=== PATIENT | female | born 1960 | race Caucasian/White ===

== ENCOUNTER 2021-09-10 15:31 | Inpatient (IN) | payer OTHER ==
[~2021-09-10] VITALS: Ht 167.6 cm; Wt 70.8 kg
--- NOTE | 2021-09-10 15:31 | NUR ---
PT BIBA AND PLACED IN BED 11.
[2021-09-10 15:35] VITALS: BP 90/60
[2021-09-10] MEDS ORDERED: NACL 0.9% 1,000 ML IV ONE ×2 (15:45→19:05)
[2021-09-10] MEDS ORDERED: BISA5TAB79 PO (16:05)
[2021-09-10] MEDS ORDERED: MULT-1328 PO (16:05)
[2021-09-10] MEDS ORDERED: GABA400C PO (16:05)
[2021-09-10] MEDS ORDERED: PRO5 PO (16:05)
[2021-09-10] MEDS ORDERED: PANT40EC PO (16:05)
[2021-09-10] MEDS ORDERED: POTA10TA PO (16:05)
[2021-09-10] MEDS ORDERED: LACT1CAP92 PO (16:05)
[2021-09-10] MEDS ORDERED: CHOL100030 PO (16:05)
[2021-09-10] MEDS ORDERED: FERR325E14 PO (16:05)
[2021-09-10] MEDS ORDERED: MIRABULK PO (16:05)
[2021-09-10] MEDS ORDERED: TOPI50TA PO (16:05)
[2021-09-10] MEDS ORDERED: LEVO0.124 PO (16:05)
[2021-09-10] MEDS ORDERED: ONDA-188 PO (16:05)
[2021-09-10] MEDS ORDERED: MIRT-91 PO (16:05)
[2021-09-10] MEDS ORDERED: HYDR-5191 PO (16:05)
[2021-09-10] MEDS ORDERED: cefTRIAXone 1,000 MG VIAL ONE (16:20)
[2021-09-10 16:44] LABS: HEMATOCRIT 38.9 % (36-48); HEMOGLOBIN 11.7 g/dL (12.0-16.0); MEAN CORPUSCULAR HEMOGLOBIN 32 pg (27-31); MEAN CORPUSCULAR HGB CONC 30 g/dL (33-37); MEAN CORPUSCULAR VOLUME 106.1 fL (80-94); PLATELET COUNT (AUTO) 303 K/uL (140-450); RED BLOOD CELL COUNT(AUTO) 3.67 MIL/uL (4.20-5.40); RED CELL DISTRIBUTION WIDTH 26.2 % (11.6-13.7)
[2021-09-10 16:47] LABS: WHITE BLOOD COUNT (AUTO) 44.5 K/uL (4.8-10.8)
[2021-09-10 17:05] LABS: ALBUMIN 1.9 g/dL (3.4-5.0); ANION GAP 22.1 (8-16); ASPARTATE AMINOTRANSFERASE 248 U/L (15-37); CARBON DIOXIDE 11.2 mmol/L (21-32); CHLORIDE 120 mmol/L (98-107); CREATININE 0.9 mg/dL (0.6-1.3); GFR ARICAN-AMERICAN 82 mL/min (>90); GLUCOSE 101 mg/dL (74-106); POTASSIUM 4.3 mmol/L (3.5-5.1); SODIUM SERUM 149 mmol/L (136-145); TOTAL BILIRUBIN 1.1 mg/dL (0.0-1.0); UREA NITROGEN, BLOOD 2 mg/dL (7-18)
[2021-09-10 17:10] LABS: LYMPHOCYTES % (MANUAL) 2 % (20-46); PROMYELOCYTES % 1 % (0-0)
[2021-09-10] MEDS ORDERED: PIPERACILLIN/TAZOBACTAM 3.375 GM in DEXTROSE 5% 50 ML IV ONE (19:00)
[2021-09-10] MEDS ORDERED: LACTATED RINGERS 1,000 ML IV ONE (19:05)
[2021-09-10] MEDS ORDERED: PIPERACILLIN/TAZOBACTAM 3.375 GM VIAL IV ONE (19:07)
--- NOTE | 2021-09-10 20:43 | NUR ---
Patient will be admitted to care of XOCHITL LEDEZMA. Admited to ICU. Will go to room 2. Belongings list completed. Report to TONI KIMBLE.
--- NOTE | 2021-09-10 20:48 | NUR ---
PT TAKEN TO CT
[2021-09-10] MEDS ORDERED: DOCUSATE SODIUM 100 MG GELCAP PO PRN (20:50)
[2021-09-10] MEDS ORDERED: HYDROcodone/APAP 7.5/325 MG 1 TAB PO PRN (20:50)
[2021-09-10] MEDS ORDERED: POTASSIUM CHLORIDE 10 MEQ TABER PO PRN (20:50)
[2021-09-10] MEDS ORDERED: guaiFENesin DM 200/20 MG-10 ML 10 ML UDC PO PRN (20:50)
[2021-09-10] MEDS ORDERED: ACETAMINOPHEN 325 MG TAB PO PRN (20:50)
[2021-09-10] MEDS ORDERED: ONDANSETRON 4 MG/2 ML VIAL IM/IVP PRN (20:50)
[2021-09-10] MEDS ORDERED: NACL 0.9% 1,000 ML IV SCH (20:50)
[2021-09-10] MEDS ORDERED: ZOLPIDEM 5 MG TAB PO PRN (20:50)
[2021-09-10 21:30] VITALS: BP 121/60
--- NOTE | 2021-09-10 21:30 | NUR ---
RECEIVED PT. FROM ER NOC SHIFT RN VIA HERIBERTO. PT. AWAKE AND CONFUSE, ONLY ALERT TO PERSON. CHECKED INITIAL ASSESSMENT. PT. ON ROOM AIR WITH O2 SAT 94%. PLACED ON NASAL CANULA 2L. IV SITE TO RIGHT ARM PICC LINE, DRESSING CHANGED. PT. SKIN HAS MULTIPLE WOUNDS, PLEASE SEE WOUND ASSESSMENT. WOUND DRESSING CHANGED. LEFT ARM OOZING WITH FLUID FROM THE SKIN. NPO PER MD ORDERED. CHECKED TEMPERATURE HYPOTHERMIC (PLEASE SEE V/S). PROVIDED A BEAR HUGGER BLANKET. REPOSITIONED PT.BED PLACED IN LOWEST HEIGHT FOR SAFETY. WILL CONT. TO CLOSELY MONITOR.
[2021-09-10 22:00] VITALS: BP 100/49
--- NOTE | 2021-09-10 22:00 | NUR ---
PT. HINDS CATHETER CHANGED TO 16F DURING THE TIME OF ICU ADMISSION. PT. OBSERVED TO BE ANURIC, FLUSHED 40ML NS AND STILL NO OUTPUT. CHANGED HINDS CATHETER AT THIS TIME TO 20F, 3 WAY CATHETER. WILL CONT. TO MONITOR.
[2021-09-10 22:26] LABS: CHOL/HDL RATIO 7.8 (1-4.5); FREE T4 (FREE THYROXINE) 0.71 ng/dL (0.76-1.46); MAGNESIUM 1.6 mg/dL (1.8-2.4); PHOSPHORUS 1.7 mg/dL (2.5-4.9); THYROID STIMULATING HORMONE 0.15 uIU/mL (0.34-3.74)
--- NOTE | 2021-09-10 22:30 | NUR ---
[facility] CALL [facility], NO ANSWER, NO VOICEMAIL,PHONE JUST KEPT ON RINGING.WILL TRY AGAIN LATER
[2021-09-10] MEDS ORDERED: VANCOMYCIN PER PHARMACY MC PRN (22:35)
--- NOTE | 2021-09-10 22:37 | NUR ---
RT GUERLINE CALLED DR LOPEZ REGARDING ABG RESULT, RARE/ENDANGERED SPECIES SPECIALIST ALSO SPOKE W/ PHYSICIAN, UPDATED ON PTS PRESENT CONDITION.MADE AWARE OF PTS PT/PTT AND INR RESULTS.QUESTIONS ANSWERED.DR LOPEZ IS AWARE PT HAS AN EXISTING PICC/MIDLINE? TO VANESSA; HE SAID OK TO USE IF PT WILL NEED VASOPRESSOR, ALSO NOTIFIED THAT RARE/ENDANGERED SPECIES SPECIALIST HAS BEEN CALLING [facility], NO ANSWER.
[2021-09-10] MEDS ORDERED: VANCOMYCIN 1GM/DEXT 5% PREMIX 200 ML IV SCH (22:45)
[2021-09-10] MEDS: DEXT 5% / NACL 0.45% 1,000 ML IV SCH (22:50)
[2021-09-10] MEDS ORDERED: VANCOMYCIN 1,000 MG VIAL ONE (22:53)
--- NOTE | 2021-09-10 23:25 | NUR ---
PHONE CALL AGAIN TO [facility], PAINTER AIRCRAFT WANTS TO FIND OUT WHEN THE PICC LINE WAS INSERTED, STILL NO ANSWER.
[2021-09-11] VITALS (28 sets, daily range): BP systolic 64–137; BP diastolic 42–86
[2021-09-11] MEDS ORDERED: PIPERACILLIN/TAZOBACTAM 3.375 GM VIAL IV ONE ×2 (01:25→04:35)
[2021-09-11] MEDS: PIPERACILLIN/TAZOBACTAM 3.375 GM in DEXTROSE 5% 50 ML IV SCH ×2 (01:29→06:32)
[2021-09-11 04:51] LABS: APPEARANCE,URINE CLOUDY (CLEAR); BILIRUBIN,URINE 1+ (NEGATIVE); BLOOD, URINE 3+ (NEGATIVE); COLOR,URINE YELLOW (YELLOW); LEUKOCYTE ESTERASE ,URINE 2+ (NEGATIVE); NITRITE, URINE NEGATIVE (NEGATIVE); UGLUCOSE NEGATIVE (NEGATIVE)
[2021-09-11 05:15] LABS: BASOPHILS # (AUTO) 0.2 K/uL (0.00-0.22); BASOPHILS % (AUTO) 0.4 % (0.0-2.0); HEMATOCRIT 30.6 % (36-48); HEMOGLOBIN 9.2 g/dL (12.0-16.0); LYMPHOCYTES # (AUTO) 2.6 K/uL (2.5-16.5); LYMPHOCYTES % (AUTO) 4.7 % (20.5-51.1); MEAN CORPUSCULAR HEMOGLOBIN 32 pg (27-31); MEAN CORPUSCULAR HGB CONC 30 g/dL (33-37); MEAN CORPUSCULAR VOLUME 107.1 fL (80-94); MONOCYTES # (AUTO) 1.2 K/uL (0.8-1.0); MONOCYTES % (AUTO) 2.1 % (1.7-9.3); NEUTROPHILS # (AUTO) 51.1 K/uL (1.8-7.7); NEUTROPHILS % (AUTO) 92.8 % (42.2-75.2); PLATELET COUNT (AUTO) 286 K/uL (140-450); RED BLOOD CELL COUNT(AUTO) 2.86 MIL/uL (4.20-5.40); RED CELL DISTRIBUTION WIDTH 26.4 % (11.6-13.7)
[2021-09-11 05:27] LABS: WHITE BLOOD COUNT (AUTO) 55.1 K/uL (4.8-10.8)
[2021-09-11 05:31] LABS: ANION GAP 18.2 (8-16); CARBON DIOXIDE 10.1 mmol/L (21-32); CREATININE 0.7 mg/dL (0.6-1.3); POTASSIUM 3.3 mmol/L (3.5-5.1)
[2021-09-11 05:32] LABS: RBC,URINE TOO NUMEROUS TO COUN /HPF (0-5)
--- NOTE | 2021-09-11 06:35 | NUR ---
PHONE CALL TO DR ANDERSON, LEFT MESSAGE TO EXCHANGE REGARDING NEW CONSULT AND THAT WBC 55.1; EXCHANGE SAID SHE WILL FORWARD THE MESSAGE TO PHYSICIAN.AWAITING REPLY
--- NOTE | 2021-09-11 07:15 | NUR ---
RECEIVED BEDSIDE REPORT FROM CANDELARIO AGUSTIN RN FOR CONTINUITY OF CARE. PT IN THE BED, AAOX0. EYES OPEN, PERRLA, CAN TRACK, BUT DOES NOT FOLLOW COMMANDS. UNABLE TO OBTAIN NEURO BASELINE. ON 2L NC. SR ON BEDSIDE MONITOR. BP 89/59. BOWEL SOUNDS ACTIVE. F/C TO GRAVITY DRAINING DARK VIC URINE. VANESSA SINGLE LUMEN PICC IN PLACE INFUSING D5 1/2NS AT 100 ML/HR. SKIN NOT INTACT, SEE WOUND ASSESSMENT. BUE +4 PITTING EDEMA, BRUISING, PETECHIAE. GENERALIZED WEAKNESS. STANDARD PRECAUTIONS IN PLACE. SAFETY PRECAUTIONS MET. INITIAL ASSESSMENT COMPLETE, WILL CONTINUE TO CLOSELY MONITOR.
--- NOTE | 2021-09-11 07:45 | NUR ---
RECEIVED ON HUMIDIFIED SUPPLEMENTAL OXYGEN AT 4 LPM VIA NC SATURATION 95%
[2021-09-11 08:17] LABS: MAGNESIUM 1.3 mg/dL (1.8-2.4); PHOSPHORUS 1.7 mg/dL (2.5-4.9)
[2021-09-11] MEDS: PANTOPRAZOLE 40 MG INJ VIAL IVP SCH (08:30)
[2021-09-11] MEDS: DEXT 5% / NACL 0.45% 1,000 ML IV SCH ×2 (08:40→19:05)
--- NOTE | 2021-09-11 08:50 | NUR ---
PHONE CALL FROM DR ANDERSON, RETURNING DEPARTMENT SECRETARY RN PAGE. INFORMED DR OF PT STATUS. ORDERED US ABD AND TO REMOVE PICC, CULTURE THE TIP, AND FIND IV ACCESS ELSEWHERE. OTHER MED ORDERS INPUT BY DR. ANDERSON.
[2021-09-11] MEDS ORDERED: MAG SULF 2000 MG/WATER PREMIX 50 ML IV SCH ×2 (09:30→15:00)
[2021-09-11] MEDS ORDERED: POTASSIUM CHLORIDE 40 MEQ, LIDOCAINE MPF 1% 25 MG in NACL 0.9% 250 ML IV PRN (09:30)
--- NOTE | 2021-09-11 09:30 | NUR ---
SEEN AND EXAMINED BY DR LEDEZMA.
[2021-09-11] MEDS: MICAFUNGIN SODIUM 100 MG in NACL 0.9% 100 ML IV SCH (09:46)
--- NOTE | 2021-09-11 09:55 | NUR ---
PHONE CALL TO PICC SERVICE. WAITING FOR CALL BACK FROM [facility] PICC NURSE FOR ETA.
--- NOTE | 2021-09-11 10:15 | NUR ---
DR CALLES ROUNDHANS AT THE BEDSIDE.
--- NOTE | 2021-09-11 10:20 | NUR ---
HIGHWAY ADMINISTRATIVE ENGINEER CALLED TO BEDSIDE DR. BRETT CALLES ROUNDHANS IN ICU; TO PERFORM INTUBATION AND BRONCHOSCOPY FOLLOWED BY RIGHT JUGULAR CATHETER
[2021-09-11] MEDS ORDERED: SODIUM BICARBONATE 8.4% PFS 50 MEQ/50 ML SYR IVP ONE ×4 (10:27→10:44)
[2021-09-11] MEDS ORDERED: POTASSIUM PHOSPHATE 15 MM in NACL 0.9% 250 ML IV SCH ×2 (10:30→10:34)
[2021-09-11] MEDS ORDERED: PROPOFOL 1000 MG/100 ML PREMIX 100 ML IV PRN (10:33)
--- NOTE | 2021-09-11 10:33 | NUR ---
PATIENT HAS BEEN SCREENED AND CATEGORIZED HIGH NUTRITION RISK. PATIENT WILL BE SEEN WITHIN 1-2 DAYS OF ADMISSION. 09/11/21-09/12/[address] FNS CONSULT RECEIVED FOR WOUNDS/PRESSURE INJURY AND RENAL DIET EDUCATION.
--- NOTE | 2021-09-11 10:33 | NUR ---
ELLEN SOTO AND WILLIAM AT BEDSIDE. DR CALLES AT BEDSIDE GIVING ORDERS AND PERFORMING INTUBATION, BRONCHOSCOPY, AND CENTRAL LINE INSERTION. 1028 1 AMP SODIUM BICARBONATE GIVEN. 1033 20 MG ETOMIDATE GIVEN. 1034 ROCURONIUM GIVEN. 1034 LEVOPHED TITRATED UP TO 30 MCG/MIN. (GOAL PER DR LEDEZMA MAP >75) BP 64/42 MAP 51 1035 ETT PLACED 7.5 @ 24CM @ LIP. 1038 BEDSIDE BRONCHOSCOPY. 1044 1 AMP SODIUM BICARBONATE GIVEN. [address] PER [address] CALLES ORDER, AT 0.4 UNITS/MIN. BP 88/58 MAP 67. ADJUSTED TO 0.04 UNITS/MIN. 1110 CENTRAL LINE INSERTED BY DR CALLES.
--- NOTE | 2021-09-11 10:35 | NUR ---
USING A GLIDESCOPE PATIENT SUCCESSFULLY INTUBATED BY DR. BRETT CALLES WITH AN ENDOTRACHEAL TUBE (ETT) #7.5 SECURED AT 18cm TEETH/GUM LINE SECURED WITH AN ANCHOR FAST CUFF INJECTED WITH 8ml AIR VIA 10ml SYRINGE ETT CONFIRMATION CO2 DETECTOR YELLOW; AUSCULTATION TO BILATERAL LUNG DAVEY; EQUAL CHEST RISE CHEST XRAY TO FOLLOW
--- NOTE | 2021-09-11 10:38 | NUR ---
BRONCHOSCOPY PERFORMED BY DR. LITZY CALLES FOR THERAPEUTIC AND DIAGNOSTIC; OBTAINED SAMPLE FOR CULTURE AND SENSITIVITY Addendum: 09/11/21 at 1431 by Cornell Cunningham RT LITZY = BRETT
[2021-09-11] MEDS: VASOPRESSIN 20 UNITS in NACL 0.9% 250 ML IV SCH ×2 (10:56→12:00)
[2021-09-11] MEDS ORDERED: SODIUM BICARBONATE 8.4% 150 MEQ in DEXTROSE 5% 1,000 ML IV SCH (11:10)
[2021-09-11] MEDS ORDERED: ALBUTEROL SULFATE/IPRATROPIU 3 ML SOL IH PRN (11:15)
[2021-09-11] MEDS: NOREPINEPHRINE 4 MG in DEXTROSE 5% 250 ML IV PRN ×3 (12:15→23:42)
--- NOTE | 2021-09-11 12:39 | NUR ---
09/11/2021 RD INITIAL ASSESSMENT COMPLETED. PLEASE REFER TO NUTRITION ASSESSMENT UNDER CARE ACTIVITY FOR ESTIMATED NUTRITIONAL NEEDS. 1.WHEN/IF MEDICALLY APPROPRIATE, RECOMMEND JEVITY 1.2 WITH A GOAL RATE OF 65ML/HR. -START AT 10 ML/HR AND INCREASE BY 10 ML EVERY 4 HOURS TOLERATED BY PT UNTIL GOAL RATE OF 65ML/HR REACHED. -FWF 200ML Q8H. THIS WILL PROVIDE 1878 KCAL AND 87 GRAMS OF PROTEIN. WITH CRISPIN, THIS MEETS 100% OF CALORIE AND 97% OF PROTEIN NEEDS. 2.WHEN/IF MEDICALLY APPROPRIATE, RECOMMEND CRISPIN BID FOR WOUND HEALING. 3.MONITOR FOR WOUND HEALING. 4.PROVIDED HANDOUT FOR PT ON UTI AND LEFT HANDOUT WITH RN TO GIVE TO PT. 5.RD TO FOLLOW-UP IN 2-3 DAYS PATIENT IS HIGH RISK. KELLI HEATH RD
--- NOTE | 2021-09-11 13:05 | NUR ---
PT DAUGHTER, BETTY AT BEDSIDE.
[2021-09-11] MEDS: LEVOFLOXACIN 750 MG/D5W PREMIX 150 ML IV SCH (13:10)
[2021-09-11] MEDS ORDERED: PROPOFOL 1000 MG/100 ML PREMIX 100 ML IV ONE (13:42)
--- NOTE | 2021-09-11 13:57 | NUR ---
SEDATED NO DISTRESS NOTED GOOD CHEST RISE AIRWAY PATENT
--- NOTE | 2021-09-11 13:58 | NUR ---
PT MOTHER AT BEDSIDE.
--- NOTE | 2021-09-11 14:12 | NUR ---
ABG PROCEDURE COMPLETED NO ADVERSE REACTIONS NOTED
--- NOTE | 2021-09-11 14:23 | NUR ---
CALLED DR. BRETT CALLES AT [facility] [phone] TO REVIEW ABG SAMPLE REPORT LUISITO/EXCHANGE TO PAGE FORMENTIONED MD PATIENT REQUIRED INFORMATION AND CALL BACK NUMBER GIVEN
--- NOTE | 2021-09-11 14:32 | NUR ---
DC PLANNING: THE PATIENT WAS BIBA FROM [facility] WITH C/O ALOC, HYPOTENSION AND TACHYCARDIA. H/O MS, WBC'S 44.5 WITH BANDS OF 14. ALK PHOS 1052, LACTIC ACID 10.2. CXR SHOWS RIGHT LUNG CONSOLIDATIONS AND BILATERAL PLEURAL EFFUSIONS, CT ABD/PELVIS SHOWS RIGHT STAGHORN CALCULUS, RIGHT RENAL ARTERY ANEURYSM, HEPATOMEGALY. UA POSITIVE FOR UTI, ADMITTED TO ICU. PANCULTURES ORDERED, PATIENT NOTED TO HAVE MULTIPLE WOUNDS ON BODY. WBC'S TODAY 55.1, ABG'S WITH PH OF 7.116. CONSULTS WITH NEPHRO , UROLOGY, PULMONOLOGY AND ID ORDERED, PATIENT HAD BRONCHOSCOPY DONE TODAY AND WAS INTUBATED, PLACED ON VENT AT 100% FIO2. ON MEREM, BICARB, VANCO, PITRESSIN, POTASSIUM, LEVAQUIN, MICAFUNGIN AND LEVOPHED. BERNABE SPOKE WITH THE PATIENTS BALJIT BY PHONE. THE PATIENT WAS DIAGNOSED WITH MS 17 YEARS AGO AND WENT TO [facility] AFTER BECOMING SEPTIC BECAUSE OF MULTIPLE PRESSURE WOUNDS. AT THAT TIME THE PATIENT LIVED AT HOME AND SCOOTED HERSELF AROUND IN HER WC. SHE HAS BEEN TOTAL CARE AT [facility] AND WAS ABLE TO VERBALIZE APPROPRIATELY UNTIL VERY RECENTLY. HER IS AWARE OF HER MULTIPLE WOUNDS AND STATES HE HAS NOT BEEN HAPPY WITH THE CARE AT [facility] AND DID MAKE A COMPLAINT TO THE BUDSMAN. HE STATES THAT THE PATIENT CHOSE THE FACILITY AND WAS NOT AWARE THAT HE MIGHT HAVE OTHER OPTIONS FOR HIS 'S CARE. HE HAS 2 CHILDREN, AN ADULT STEPDAUGHTER AND A SON WHO IS SPECIAL NEEDS. BERNABE THEN ATTEMPTED TO SPEAK WITH NURSING AT [facility] TWICE, EACH TIME THE CALL WAS NOT PICKED UP AND WENT TO VOICE MAIL. BERNABE WILL TRY AGAIN IN AM TO SPEAK WITH SOMEONE REGARDING THE PATIENTS CURRENT STATUS AND CARE AT [facility]. BERNABE WILL FOLLOW.
--- NOTE | 2021-09-11 14:35 | NUR ---
OSVALDO/BLISS PRESS OPERATOR NOTIFIED OF ABG RESULT HcO3 11.8
--- NOTE | 2021-09-11 14:38 | NUR ---
CALL BACK FROM DR. BRETT CALLES REVIEWED ABG SAMPLE REPORT TORBO: INCREASE MECHANICAL RATE TO 30 BPM; NOTIFIED OSVALDO/MACHINE PULLER VIA MACHINE PULLER Addendum: 09/11/21 at 1458 by Cornell Cunningham RT ABG ON 09/12/2021 AT 8 AM
[2021-09-11] MEDS: VANCOMYCIN HCL 1.25 GM in DEXTROSE 5% 250 ML IV SCH ×2 (15:04→22:49)
[2021-09-11] MEDS: MEROPENEM 1,000 MG in NACL 0.9% 50 ML IV SCH ×2 (15:04→20:26)
[2021-09-11] MEDS: ALBUTEROL SULFATE/IPRATROPIU 3 ML SOL IH SCH ×3 (15:19→23:06)
--- NOTE | 2021-09-11 15:20 | NUR ---
SEDATED RESTING COMFORTABLY GOOD CHEST RISE WITH GOOD AERATION THROUGHOUT BILATERAL LUNG DAVEY AIRWAY PATENT
--- NOTE | 2021-09-11 17:04 | NUR ---
PT DAUGHTER BETTY AT BEDSIDE
--- NOTE | 2021-09-11 17:20 | NUR ---
PT , BALJIT, AT BEDSIDE. UPDATED REGARDING PT CONDITION. ALL QUESTIONS ANSWERED AT THIS TIME.
--- NOTE | 2021-09-11 17:52 | NUR ---
SEDATED STABLE EQUAL CHEST RISE WOTH GOOD AERATION THROUGHOUT BILATERAL LING DAVEY AIRWAY PATENT
--- NOTE | 2021-09-11 19:28 | NUR ---
ENDORSED BEDSIDE REPORT TO CANDELARIO AGUSTIN RN FOR CONTINUITY OF CARE. ALL QUESTIONS ANSWERED. VS STABLE, BP 102/75, O2SAT 90.
--- NOTE | 2021-09-11 19:30 | NUR ---
RECEIVED PT. FROM DAY SHIFT RN INTUBATED, ETT VENT SETTING AC 30, TV 400, FIO2 80% AND PEEP 5. PT. WITH RIGHT JUGULAR CVP TRIPLE LUMEN RUNNING IV FLUIDS OF D5 1/2 NS 100 ML/HR, D5 SODIUM BICARB AT 100 ML/HR., PROPOFOL DRIP 15 MCH/KG/MIN, LEVOPHED DRIP 16 MCG/MIN. STARTED VASOPRESSIN DRIP 0.01 UNITS/MIN AT 1900 DUE TO SBP IN THE 60'S AND AT 1915 DECREASED PROPOFOL DRIP FROM 15 MCG/KG/MIN TO 10 MCG/KG/MIN. PT. WEB SERVICES DEVELOPER ON SINUS TACHYCARDIA. PT. OPEN HER EYES WHEN YOU CALL HER NAME. ALL EXTREMITIES WEAK. WITH LEFT NGT RUNNING JEVITY 10 ML/HR WITH MINIMAL RESIDUAL. HINDS CATHETER [address]. REPOSITIONED AND PROVIDED SAFE AND QUIET ENVIRONMENT. WILL CONT. TO MONITOR.
--- NOTE | 2021-09-11 19:53 | NUR ---
MESSAGE TO DR CALLES,PULMO MOTOR AND CHASSIS INSPECTOR REGARDING IVF;NEW ORDER RECEIVED, TO CHANGE IVF TO D5 WITH 2 AMPS SODIUM BICARB AT 100ML/HR AND DC ALL OTHER IVF DRIPS.CARRIED OUT
--- NOTE | 2021-09-11 19:54 | NUR ---
PT. TOLERATING PROPOFOL DRIP OF 10 MG/KG/MIN. WITH WEIGHT 136 LBS BEDSCALE.. PT. COMFORTABLE AT THIS TIME.
[2021-09-11] MEDS ORDERED: NOREPINEPHRINE 4 MG/4 ML VIAL IV ONE (23:32)
[2021-09-12] VITALS (24 sets, daily range): BP systolic 48–125; BP diastolic 16–91
--- NOTE | 2021-09-12 03:00 | NUR ---
PT. GASTRIC RESIDUAL IS 120 ML VIA NGT. HOLD GASTRIC FEEDING OF JEVITY 10 ML/HR. WILL CONT. TO MONITOR.
[2021-09-12] MEDS ORDERED: NOREPINEPHRINE 4 MG/4 ML VIAL IV ONE ×2 (03:45→06:34)
--- NOTE | 2021-09-12 03:55 | NUR ---
PROVIDED PT. PERSONAL CARE, ORAL CARE, CALOS CARE AND CLEANSED AND CHANGED ALL WOUNDS DRESSING.
--- NOTE | 2021-09-12 03:56 | NUR ---
PT. RIGHT JUGULAR CATHETER TRIPLE LUMEN DRESSING CHANGED. SITE PATENT AND INTACT. LEFT SIDE OF THE NECK NOTED SKIN TEAR, PICTURE TAKEN, PLEASE SEE WOUND ASSESSMENT. WILL ENDORSE TO THE NEXT SHIFT.
[2021-09-12] MEDS: NOREPINEPHRINE 4 MG in DEXTROSE 5% 250 ML IV PRN ×2 (04:00→06:38)
--- NOTE | 2021-09-12 04:00 | NUR ---
PT. NOTED TO BE UNRESPONSIVE, HR IN 150S AND LOW BP, PLEASE SEE V/S FLOWSHEET. TURNED OF LPROPOFOL DRIP. INCREASED LEVOPHED DRIP FROM 16 MCG/MIN TO 25MCG/MIN. VASOPRESSIN TITRATED FROM 0.02 UNIT PER MIN TO 0.04 UNIT PER MINUTE. PAGED TO REPORT.
--- NOTE | 2021-09-12 04:07 | NUR ---
PAGED DR. CALLES TO REPORT PT. HR 150'S. PT. UNRESPONSIVE AND PUPILS SIZE 4 SLUGGISH. BP 101/53. PER CONGRESSIONAL DISTRICT AIDE DR. CONTRERAS CORPORATE SECURITIES RESEARCH ANALYST. WILL WAIT FOR HIS CALL.
[2021-09-12] MEDS: ALBUTEROL SULFATE/IPRATROPIU 3 ML SOL IH SCH ×2 (04:09→07:00)
--- NOTE | 2021-09-12 04:15 | NUR ---
PHONE CALL TO DR CARPENTER, INFORMED DR CARPENTER THAT WE ALREADY PAGED DR CASTILLO BUT STILL AWAITING REPLY, PTS HR 159 AT THIS TIME.BP ALSO LOW, PT ALREADY ON LEVOPHED AND VASOPRESSIN TITRATED PER PROTOCOL; DR CARPENTER ORDERED 2 LITERS NS BOLUS.CARRIED OUT.SHYANNE PEÑA
[2021-09-12] MEDS ORDERED: NACL 0.9% 1,000 ML IV SCH ×2 (04:20)
--- NOTE | 2021-09-12 04:20 | NUR ---
PHONE CALL FROM DR CONTRERAS, UPDATED ON PTS PRESENT CONDITION,MADE AWARE OF PTS HR 159, LOW BP, PT ON C=VASOPRESSORS,[place] SYNEPHRINE ORDERED. ALSO NOTIFIED DR CARPENTER ORDER OF NS 2 L BOLUS, DR CONTRERAS AGREED.
[2021-09-12] MEDS ORDERED: PHENYLEPHRINE 40 MG in NACL 0.9% 250 ML IV PRN (04:25)
[2021-09-12] MEDS: MEROPENEM 1,000 MG in NACL 0.9% 50 ML IV SCH ×2 (04:45→15:17)
[2021-09-12 06:29] LABS: ANION GAP 18.9 (8-16); CARBON DIOXIDE 15.1 mmol/L (21-32); CREATININE 0.8 mg/dL (0.6-1.3)
[2021-09-12 06:30] LABS: MAGNESIUM 1.5 mg/dL (1.8-2.4); PHOSPHORUS 1.7 mg/dL (2.5-4.9)
--- NOTE | 2021-09-12 07:10 | NUR ---
RECEIVED ON A MayomiAPE R860 VENTILATOR PLUGGED INTO RED OUTLET TOLERATING WELL WITHOUT ADVERSE REACTIONS NOTED TO AN ENDOTRACHEAL TUBE #7.5 AT 18cm TEETH/GUM LINE SECURED WITH AN ANCHOR FAST CUFF PRESSURE CHECKED NOTED AMBU BAG AT BEDSIDE SINUS TACHYCARDIA +140 BPM HHN WITH DUONEB NOT GIVEN AT THIS TIME WAREHOUSE ADMINISTRATIVE ASSISTANT TO REFER TO BIOTECH PRODUCTION SPECIALIST FOR ALTERNATIVE HHN MEDICATION
--- NOTE | 2021-09-12 07:19 | NUR ---
ENDORSED ALL CARE TO DAY SHIFT RN. ALL QUESTIONS WERE ANSWERED.
--- NOTE | 2021-09-12 07:25 | NUR ---
RECEIVED PT NONVERBAL, ABLE TO OPEN EYES TO VOICE. ET TUBE TO VENT SETTINGS AC PRVC TV 400 RATE 30 PEEP 5 FIO2@100%. SINUS TACHYCARDIA ON MONITOR. NG-TUBE INTACT ON LEFT NARE. HINDS CATHETER INTACT AND DRAINING TO BSD. CENTRAL LINE ON RIGHT IJ INTACT AND PATENT INFUSING D5 WITH 2 AMP OF BICARB @100ML/HR, VASOPRESSIN @0.04 UNITS/MIN, AND LEVOPHED @27MCG/MIN. VITAL SIGNS UNSTABLE. WILL REPORT TO .
--- NOTE | 2021-09-12 07:52 | NUR ---
PAGED DR. CONTRERSA AND LEFT MESSAGE REGARDING PT'S HIGH HEART RATE OF 183 BPM. AWAITING CALL BACK.
[2021-09-12] MEDS ORDERED: NOREPINEPHRINE 16 MG in DEXTROSE 5% 250 ML IV PRN (07:55)
[2021-09-12 08:01] LABS: BASOPHILS # (AUTO) 0.1 K/uL (0.00-0.22); BASOPHILS % (AUTO) 0.2 % (0.0-2.0); EOSINOPHILS % (AUTO) 0.1 % (0.0-4.0); HEMATOCRIT 33.9 % (36-48); HEMOGLOBIN 10.1 g/dL (12.0-16.0); LYMPHOCYTES # (AUTO) 4.3 K/uL (2.5-16.5); LYMPHOCYTES % (AUTO) 9.9 % (20.5-51.1); MEAN CORPUSCULAR HEMOGLOBIN 33 pg (27-31); MEAN CORPUSCULAR HGB CONC 30 g/dL (33-37); MEAN CORPUSCULAR VOLUME 109.9 fL (80-94); MONOCYTES # (AUTO) 0.9 K/uL (0.8-1.0); MONOCYTES % (AUTO) 2.1 % (1.7-9.3); NEUTROPHILS # (AUTO) 38.2 K/uL (1.8-7.7); NEUTROPHILS % (AUTO) 87.7 % (42.2-75.2); PLATELET COUNT (AUTO) 205 K/uL (140-450); RED BLOOD CELL COUNT(AUTO) 3.09 MIL/uL (4.20-5.40); RED CELL DISTRIBUTION WIDTH 26.3 % (11.6-13.7)
--- NOTE | 2021-09-12 08:01 | NUR ---
SPOKE TO DR REGARDING LAB VALUES INCLUDING CALCIUM LEVEL AND HIGH HEART RATE AND RECEIVED NEW ORDERS.
[2021-09-12] MEDS ORDERED: LACTATED RINGERS 1,000 ML IV SCH (08:10)
--- NOTE | 2021-09-12 08:10 | NUR ---
EKG DONE AT BEDSIDE.
--- NOTE | 2021-09-12 08:22 | NUR ---
DR. BRETT CALLES AT BEDSIDE REVIEWED PATIENT PULMONARY, DIAGNOSTIC READINGS (HYPOVOLEMIC B/P; DECREASED SATURATION) AND VENTILATOR STATUS; ADVISED FORMENTIONED MD ON ARDS PROTOCOL ASSEMBLER MOLDED FRAMES ONLY INCREASING PEEP TO 7cmH2O AT THIS TIME; MD TO INFUSE LEVOPHED; MD AWARE OF NUMEROUS ATTEMPTS TO OBTAIN SCHEDULED ABG (0800) OKAY TO OBTAIN ABG AT A LATER TIME ASSEMBLER MOLDED FRAMES CALLING WITH RESULTS
--- NOTE | 2021-09-12 08:22 | NUR ---
SEEN AND EXAMINED BY DR. CALLSE. DR. CALLES PLACED A PHONE CALL AND SPOKE TO DAUGHTER BETTY REGARDING PT'S UNSTABLE CONDITION. NEW ORDERS RECEIVED.
[2021-09-12 08:27] LABS: WHITE BLOOD COUNT (AUTO) 43.5 K/uL (4.8-10.8)
[2021-09-12] MEDS ORDERED: CALCIUM GLUC 1 GM/50 mL NS BAG 50 ML IV SCH (08:30)
--- NOTE | 2021-09-12 08:40 | NUR ---
CHEST XRAY DONE AT BEDSIDE.
[2021-09-12] MEDS: VASOPRESSIN 20 UNITS in NACL 0.9% 250 ML IV SCH (08:43)
--- NOTE | 2021-09-12 08:50 | NUR ---
ECHO DONE AT BEDSIDE.
[2021-09-12] MEDS: PANTOPRAZOLE 40 MG INJ VIAL IVP SCH (09:06)
--- NOTE | 2021-09-12 09:10 | NUR ---
WOUND CARE NOTE: 61 Y/O FEMALE ADMITTED FROM [facility] FOR SEPSIS, HYPOTENSIVE AND TACHYCARDIC. PT. ADMITTED WITH MULTIPLE PRESSURE INJURIES. HISTORY OF MULTIPLE SCLEROSIS, RECENT DX OF KIDNEY STONE. VISIT PT. AT BEDSIDE, PT NOT STABLE TO TURN AND TO PERFORM WOUND ASSESSMENT. AT TIME OF VISIT, PTS HEART RATE 140-146 AND RESPIRATORY RATE 31-35. POC DISCUSSED WITH PRIMARY RN GINETTE, WOUND PHOTO REVIEWED, WILL START WOUND CARE PER PROTOCOL AT THIS TIME AND WILL ASSESS PT. WHEN PT. IS STABILIZED. -CLEANSE MULTIPLE WOUNDS TO RIGHT EAR, UPPER AND LOWER BACK, BUTTOCKS , SACRAL AND BILATERAL LOWER LEGS/FEET OPEN WOUNDS WITH WOUND CARE SOLUTION,PAT DRY, APPLY OIL EMULSION DRESSING AND COVER WITH FOAM DRESSING DAILY AND PRN IF SOILING -POSITIONING: TURN AND REPOSITION PATIENT Q 2H OR SOONER USE PILLOWS TO KEEP BONY PROMINENCES FROM DIRECT CONTACT WITH SURFACES USE REPOSITIONING WEDGES TO PROVIDE 30-DEGREE ANGLE FOR SIDE LYING POSITIONS OFFLOADING OR FOAM DRESSING TO ALL TUBING TO PREVENT MEDICAL DEVICES RELATED PRESSURE INJURY -RE-EVALUATING AND MANAGING INCONTINENCE MONITOR SKIN CONDITION DURING POSITION CHANGE DO NOT MASSAGE REDNESS, BONY PROMINENCES FREQUENT CALOS-CARE AND PROVIDE BARRIER CREAMS PRN IF SOILING MOISTURE CONTROL BY OFFER BED MOLINA/URINAL /ABSORBENT PAD TO WICK AND HOLD MOISTURE KEEP SKIN DRY AND PROTECT FROM FRICTION -MANAGE FRICTION/SHEAR/MOBILITY KEEP HOB AT THE LOWEST LEVEL OF ELEVATION NO MORE THAN 30-DEGREE UNLESS OTHERWISE CONTRAINDICATED USE LIFT SHEET OR TRANSFER DEVICE TO MOVE PATIENT AND PREVENT LATERAL SHEER. PROTECT HEELS, ELBOWS BONY PROMINENCES WITH SKIN BERRIES OR FOAM DRESSING IF EXPOSED TO FRICTION OFFLOAD BILATERAL HEELS BY PLACING PILLOWS UNDER CALVES AT ALL TIMES, UNLESS OTHERWISE CONTRAINDICATED -PRESSURE REDISTRIBUTION SURFACE THERAPY MINNIE ISOFLEX JOSEPH MATTRESS -NUTRITION: PLEASE FOLLOW RD RECOMMENDATIONS AND OFFER NUTRITION SUPPLEMENTS IF ORDERED.
[2021-09-12] MEDS: LEVOFLOXACIN 750 MG/D5W PREMIX 150 ML IV SCH (09:18)
[2021-09-12] MEDS ORDERED: MAG SULF 2000 MG/WATER PREMIX 50 ML IV SCH (09:30)
[2021-09-12] MEDS ORDERED: SODIUM BICARBONATE 8.4% PFS 50 MEQ/50 ML SYR IVP SCH (09:30)
--- NOTE | 2021-09-12 10:30 | NUR ---
RESPONSIVE TO NAME WHEN CALLED GOOD CHEST RISE AIRWAY PATENT
--- NOTE | 2021-09-12 10:36 | NUR ---
REVIEWED BLOOD PRESSURE OBTAINED ABG SAMPLE AT THIS TIME NO ADVERSE REACTIONS NOTED
--- NOTE | 2021-09-12 10:45 | NUR ---
DR. CARPENTER AT BEDSIDE EXAMINING PT.
--- NOTE | 2021-09-12 10:50 | NUR ---
CALLED DR. BRETT CALLES AT [facility] [phone] TO REVIEW ABG SAMPLE REPORT LINUS/EXCHANGE TO PAGE FOREMENTIONED PATIENT REQUIRED INFORMATION AND CALL BACK NUMBER GIVEN
--- NOTE | 2021-09-12 11:08 | NUR ---
CALL BACK FRO DR BRETT CALLES REVIEWED ABG SAMPLE REPORT, DIAGNOSTIC READINGS (B/P,HR,SATURATION), VENTILATOR SETTINGS, HHN THERAPY, BLOOD PRESSURE IV MEDS TORBO: INCREASE MECHANICAL Vt 450ml, PEEP [id number] OKAY TO INCREASE PEEP TO [id number] IF NEEDED, ABG AM 09/13/21 8AM Addendum: 09/12/21 at 1129 by Cornell Cunningham RT HHN THERAPY DC DUONEB Q4 AND Q2 PRN FOR SOBCHANGE TO XOPONEX 1.25 Q6 AND Q4 PRN FOR SOB Addendum: 09/12/21 at 1214 by Cornell Cunningham RT FRO = FROM
[2021-09-12] MEDS ORDERED: SODIUM BICARBONATE 8.4% 100 MEQ in DEXTROSE 5% 1,000 ML IV SCH (11:10)
--- NOTE | 2021-09-12 11:10 | NUR ---
PER TORBO DR. CALLES NOTED AT 1108 INCREASED Vt TO 450ml; PEEP TO [id number] GINETTE/GREENHOUSE LABORER NOTIFIED EQUAL CHEST RISE GOOD AERATION THROUGHOUT BILATERAL LUNG DAVEY AIRWAY PATENT
[2021-09-12] MEDS ORDERED: FLUCONAZOLE 200 MG/NS PREMIX 100 ML IV ONE (11:20)
[2021-09-12] MEDS ORDERED: LEVALBUTEROL 1.25 MG/0.5 ML NEBU INH PRN (11:30)
[2021-09-12] MEDS ORDERED: POTASSIUM PHOSPHATE 15 MM in NACL 0.9% 250 ML IV SCH (12:00)
[2021-09-12] MEDS ORDERED: HYDROCORTISONE NA SUCC 100 MG/2 ML VIAL IV SCH (12:00)
--- NOTE | 2021-09-12 12:37 | NUR ---
DR. LUCIA AT BEDSIDE EXAMINING PT. Addendum: 09/12/21 at 1248 by Nupur Reece RN DR. BROWN AT BEDSIDE EXAMINING PT.
[2021-09-12] MEDS: MICAFUNGIN SODIUM 100 MG in NACL 0.9% 100 ML IV SCH (12:50)
[2021-09-12] MEDS ORDERED: GAUZE TP SCH (13:00)
[2021-09-12] MEDS ORDERED: SODIUM BICARBONATE 8.4% 150 MEQ in DEXTROSE 5% 1,000 ML IV SCH (13:00)
[2021-09-12] MEDS ORDERED: LEVALBUTEROL 1.25 MG/0.5 ML NEBU INH SCH (13:00)
--- NOTE | 2021-09-12 14:08 | NUR ---
RESPONSIVE TO NAME CALLED BY AT RIGHT SIDE OF BED GOOD EYE TRACKING TO EQUAL CHEST RISE AIRWAY PATENT
--- NOTE | 2021-09-12 15:15 | NUR ---
PROVIDED WOUND CARE AND PERICARE. TURNED AND REPOSITIONED. SUCTIONED NEEDED.
--- NOTE | 2021-09-12 16:12 | NUR ---
VITAL SIGNS UNSTABLE. SEE VITAL SIGN ASSESSMENT. CONTINUES ON SULEMAN HUGGER FOR LOW TEMPERATURE. CONTINUES ON LEVOPHED, VASOPRESSIN, AND [id number] FOR BLOOD PRESSURE. VENT SETTINGS CHANGED TO AC PRVC TV 450 RATE 30 PEEP 10 FIO2@100% PER DR. CALLES ORDERED. AND DAUGHTER AT BEDSIDE.
--- NOTE | 2021-09-12 16:24 | NUR ---
RESTING COMFORTABLY RESPONSIVE TO NAME BEING CALLED EASILY AWAKENS EQUAL CHEST RISE GOOD AERATION THROUGHOUT LUNG DAVEY AIRWAY PATENT AND GRANDDAUGHTER AT BEDSIDE
--- NOTE | 2021-09-12 16:55 | NUR ---
MORPHINE IVP GIVEN, MORPHINE DRIP STARTED. RT REMOVED ET TUBE. PT TOLERATED WELL. RT SUCTIONED ORAL SECRETIONS. NGTUBE REMOVED TO LEFT NARE. PT TOLERATED WELL. D/C LEVOPHED, VASOPRESSIN, AND [place]-SYNEPHRINE DRIP. DISCONTINUED SODIUM BICARB FLUID. FAMILY AT BEDSIDE.
--- NOTE | 2021-09-12 17:00 | NUR ---
DR. CARPENTER CALLED FOR PATIENT UPDATE AND SPEAK WITH FAMILY. DISCUSSED COMFORT MEASURES. ORDERS RECEIVED FOR MORPHINE INFUSION AND DISCONTINUE ETT AND VASOPRESSORS. FAMILY AT BEDSIDE AND QUESTIONS ANSWERED.
[2021-09-12] MEDS ORDERED: MORPHINE SULFATE 2 MG/ML SYR IVP PRN (17:05)
[2021-09-12] MEDS ORDERED: MORPHINE SULFATE 250 MG in NACL 0.9% 250 ML IV PRN (17:05)
--- NOTE | 2021-09-12 17:52 | NUR ---
COMMUTER PILOT CALLED TO BEDSIDE FOR EXTUBATION PREPARATION RESTING COMFORTABLY EQUAL CHEST RISE GOOD AERATION THROUGHOUT BILATERAL LUNG DAVEY AIRWAY PATENT
--- NOTE | 2021-09-12 17:54 | NUR ---
ON OR ABOUT THIS TIME MORPHINE SULFATE PUSH FOLLOWED BY DRIP PER GINETTE/GLOVE EXAMINER
--- NOTE | 2021-09-12 17:55 | NUR ---
PULMONARY AND OROPHARYNGEAL SUCTION REMOVED HEAD STRAP DEFLATED CUFF PRESSURE AGRICULTURAL ECONOMICS TEACHER FLAT DURING PATIENT EXHALATION EXTRACTED ENDOTRACHEAL TUBE
--- NOTE | 2021-09-12 18:26 | NUR ---
CALLED [facility] AND SPOKE TO SERAFIN. REFERENCE #: [id number]. PER SERAFIN, HER BODY IS RELEASED, THEY ARE NOT PURSING DONATIONS.
--- NOTE | 2021-09-12 18:36 | NUR ---
CALLED [employer] AND SPOKE TO ENRIQUETA. PER ENRIQUETA, SHE WILL HAVE SOMEONE FROM [employer] OFFICE CALL ME BACK.
--- NOTE | 2021-09-12 18:50 | NUR ---
DEPUTY VINSON CALLED FROM [employer] OFFICE. REPORTED . PER DEPUTY VINSON, THEY'LL DELAY REPORTABLE AND RELEASE BODY TO FAMILY'S CHOICE.
--- NOTE | 2021-09-12 19:00 | NUR ---
PHONE CALL TO [facility].QUESTIONS ANSWERED.BOMB TECHNICIAN TIME IN 2 HOURS.
[2021-09-12 19:07] LABS: T3 UPTAKE 41 % (24 - 39)
[2021-09-12 19:08] LABS: T4 (THYROXINE) 1.5 ug/dL (4.5 - 12.0)
--- NOTE | 2021-09-12 21:35 | NUR ---
BODY PICKED UP BY [facility].
== END 2021-09-12 21:35 | DRG 871 ==
LOC: MED 15:31 → MMU 19:43 → MIC 20:05
PROVIDERS: ADMIT Family Medicine; ATTEND Family Medicine
PROC: 5A1945Z Respiratory Ventilation, 24-96 Consecutive Hours (ICD-10-PCS; principal; 2021-09-10)
PROC: 0BH17EZ Insertion of Endotracheal Airway into Trachea, Via Natural or Artificial Opening (ICD-10-PCS; 2021-09-10)
DX: A41.9 Sepsis, unspecified organism (principal); E43 Unspecified severe protein-calorie malnutrition; J18.9 Pneumonia, unspecified organism; R65.21 Severe sepsis with septic shock; G93.41 Metabolic encephalopathy; J96.01 Acute respiratory failure with hypoxia; E87.0 Hyperosmolality and hypernatremia; G82.20 Paraplegia, unspecified; E87.2 Acidosis; N39.0 Urinary tract infection, site not specified; K83.09 Other cholangitis; E86.0 Dehydration; E87.6 Hypokalemia; G35 Multiple sclerosis; E78.2 Mixed hyperlipidemia; E03.9 Hypothyroidism, unspecified; D63.8 Anemia in other chronic diseases classified elsewhere; K21.9 Gastro-esophageal reflux disease without esophagitis; G40.909 Epilepsy, unspecified, not intractable, without status epilepticus; E83.42 Hypomagnesemia; E83.39 Other disorders of phosphorus metabolism; Z20.822 Contact with and (suspected) exposure to COVID-19; E83.51 Hypocalcemia; K80.20 Calculus of gallbladder without cholecystitis without obstruction; L89.159 Pressure ulcer of sacral region, unspecified stage; Z86.16 Personal history of COVID-19; Z87.442 Personal history of urinary calculi; Z87.891 Personal history of nicotine dependence
CPT/HCPCS: 31500; 36415; 36600; 70450; 71045; 76700; 80048; 80053; 80202; 81001; 82150; 82803; 83036; 83605; 83690; 83735; 83880; 84100; 84436; 84439; 84443; 84479; 84484; 85025; 85610; 85730; 87040; 87070; 87075; 87081; 87086; 87205; 89220; 93005; 94002; 94003; 94640; 96361; 96365; 96367; 99291; A4649; C9113; J0610; J0696; J1720; J1956; J2185; J2248; J2270; J2370; J2543; J2704; J3370; J3475; J3490; J7030; J7060; J7120; J7612; Q0092